=== PATIENT | male | born 1950 | race American Indian/Alaskan Native ===

== ENCOUNTER 2021-07-13 02:58 | Emergency (ER) | payer MEDICARE, OTHER ==
[2021-07-13 03:22] VITALS: BP 147/75
--- NOTE | 2021-07-15 11:58 | Electrocardiograph Report ---
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
== END 2021-07-13 04:00 | disposition left against medical advice (07) ==
LOC: ED 02:58
DX: R42 Dizziness and giddiness (principal); Z53.21 Procedure and treatment not carried out due to patient leaving prior to being seen by health care provider
CPT/HCPCS: 93005